=== PATIENT | female | born 1940 | race Caucasian/White ===

== ENCOUNTER 2018-06-15 15:28 | Emergency (ER) | payer MEDICARE, OTHER ==
[2018-06-15] MEDS: FAMOTIDINE 20 MG TAB PO (16:03)
[2018-06-15] MEDS: predniSONE 20 MG TAB PO (16:04)
[2018-06-15] MEDS: diphenhydrAMINE INJ 50MG/ML VIAL (J1200) IM (16:05)
[2018-06-15] MEDS: HYDROCORTISONE 1% CREAM 30 GM TOP (16:09)
== END 2018-06-15 17:20 | disposition home or self-care (01) ==
LOC: M ED 15:28
DX: R21 Rash and other nonspecific skin eruption (principal); S50.362A Insect bite (nonvenomous) of left elbow, initial encounter; W57.XXXA Bitten or stung by nonvenomous insect and other nonvenomous arthropods, initial encounter; Y92.89 Other specified places as the place of occurrence of the external cause; Z79.899 Other long term (current) drug therapy; Z79.82 Long term (current) use of aspirin; Z88.0 Allergy status to penicillin; Z88.1 Allergy status to other antibiotic agents; Z88.5 Allergy status to narcotic agent; Z88.8 Allergy status to other drugs, medicaments and biological substances; Z91.030 Bee allergy status; Z87.891 Personal history of nicotine dependence
CPT/HCPCS: J1200

== ENCOUNTER 2020-06-20 14:07 | Emergency (ER) | payer MEDICARE ==
[~2020-06-20 14:07] MED LIST: ASPI81TA26 PO; ATOR40TA75 PO; BENA25CA4 PO; CALC600T31 PO; EVIS1TAB PO; LEVO112T25 PO; PEPC1TAB5 PO; PRED20TA PO; PROL60SO SC; VITA100066 PO; VITMTA PO
[2020-06-20] MEDS ORDERED: predniSONE 20 MG TAB ONE (14:40)
[2020-06-20] MEDS ORDERED: predniSONE 20 MG TAB As Ordered ONE (14:42)
== END 2020-06-20 15:10 | disposition home or self-care (01) ==
LOC: M ED 14:07
DX: R21 Rash and other nonspecific skin eruption (principal); S90.861A Insect bite (nonvenomous), right foot, initial encounter; W57.XXXA Bitten or stung by nonvenomous insect and other nonvenomous arthropods, initial encounter; Y92.89 Other specified places as the place of occurrence of the external cause; E11.9 Type 2 diabetes mellitus without complications; Z79.82 Long term (current) use of aspirin; Z88.0 Allergy status to penicillin; Z88.1 Allergy status to other antibiotic agents; Z88.5 Allergy status to narcotic agent; Z88.8 Allergy status to other drugs, medicaments and biological substances; Z91.030 Bee allergy status; Z87.891 Personal history of nicotine dependence